=== PATIENT | male | born 1970 | race Caucasian/White ===

== ENCOUNTER 2019-02-03 15:11 | Emergency (ER) | payer BC, OTHER ==
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
[2019-02-03 15:39] VITALS: BP 118/68
--- NOTE | 2019-02-03 16:11 | UC ---
Bite Injury/Animal HPI - HPI Summary HPI Summary: 49-year-old male comes in with a chief complaint of a tick bite to the left side of the abdomen. He noticed that tick there today is not sure how long its been in there. He attempted to remove it and he broke up is off. No rash feels well otherwise. - History of Current Complaint Chief Complaint: UCGeneralIllness Stated Complaint: TICK Time Seen by Provider: 02/03/19 15:55 Pain Intensity: 0 - Allergies/Home Medications Allergies/Adverse Reactions: Allergies Allergy/AdvReac Type Severity Reaction Status Date / Time Adhesive Tape Allergy Mild Rash Verified 02/03/19 15:35 Home Medications: Home Medications Loratadine [Claritin 10 MG CAP] 10 mg PO DAILY 02/03/19 [History Confirmed 02/03] PMH/Surg Hx/FS Hx/Imm Hx Previously Healthy: Yes - Surgical History Surgical History: Yes Surgery Procedure, Year, and Place: gastroendofundiplication 1999,. vasectomy 1999,. T&A 1978,. kidney stone 1991. RT CTR 2005 (EVENT LOOP RECORDER PLACED AND THEN REMOVED) - Family History Known Family History: Positive: Non-Contributory - Social History Alcohol Use: Occasionally Substance Use Type: None Smoking Status (MU): Former Smoker Type: Cigarettes Amount Used/How Often: 1PPD Length of Time of Smoking/Using Tobacco: 15 YRS Have You Smoked in the Last Year: No When Did the Patient Quit Smoking/Using Tobacco: 5 YEARS AGO - Immunization History Most Recent Influenza Vaccination: never Most Recent Tetanus Shot: <5 yrs Most Recent Pneumonia Vaccination: never Review of Systems All Other Systems Reviewed And Are Negative: Yes Constitutional: Positive: Negative Skin: Positive: Other - SEE HPI Eyes: Positive: Negative ENT: Positive: Negative Respiratory: Positive: Negative Cardiovascular: Positive: Negative Gastrointestinal: Positive: Negative Motor: Positive: Negative Neurovascular: Positive: Negative Musculoskeletal: Positive: Negative Neurological: Positive: Negative Psychological: Positive: Negative Is Patient Immunocompromised?: No Physical Exam Triage Information Reviewed: Yes Appearance: Well-Appearing, No Pain Distress, Well-Nourished Vital Signs: Initial Vital Signs Temp 99.1 F 02/03/19 15:30 Pulse 60 02/03/19 15:30 Resp 16 02/03/19 15:30 BP 118/68 02/03/19 15:30 Pulse Ox 98 02/03/19 15:30 Vital Signs Reviewed: Yes Eye Exam: Normal Eyes: Positive: Conjunctiva Clear Neck: Positive: Supple Respiratory: Positive: No respiratory distress Musculoskeletal: Positive: Strength Intact, ROM Intact Neurological: Positive: Alert Psychological: Positive: Age Appropriate Behavior Skin: Positive: Other - On the left side of the abdomen there is a 3 mm area of erythema with a dark foreign body in the center which I removed using a pair of splinter forceps. Bite Injury Course/Dx - Course Course Of Treatment: No bull's-eye rash. No symptoms of Lyme disease. Treating the patient with doxycycline 200 mg by mouth single dose. Get reevaluated if worse or any questions or concerns. - Differential Dx/Diagnosis Provider Diagnosis: Tick bite of abdominal wall Discharge ED - Sign-Out/Discharge Documenting (check all that apply): Patient Departure All imaging exams completed and their final reports reviewed: No Studies - Discharge Plan Condition: Stable Disposition: HOME Prescriptions: DOXYcycline CAP(*) [DOXYcycline 100MG CAP(*)] 200 mg PO DAILY #2 cap Patient Education Materials: Tick Bite (ED) Referrals: Leah Martin MD [Primary Care Provider] - Additional Instructions: FOLLOW UP WITH YOUR DOCTOR IF NOT COMPLETELY IMPROVED. GET RECHECKED SOONER IF YOUR CONDITION WORSENS; BULLS EYE RASH, SYMPTOMS OF LYME DISEASE OR ANY QUESTIONS OR CONCERNS. - Billing Disposition and Condition Condition: STABLE Disposition: Home
== END 2019-02-03 16:18 | disposition home or self-care (01) ==
LOC: UCEAST 15:11
DX: S30.861A Insect bite (nonvenomous) of abdominal wall, initial encounter (principal); W57.XXXA Bitten or stung by nonvenomous insect and other nonvenomous arthropods, initial encounter; Y92.9 Unspecified place or not applicable; Z91.09 Other allergy status, other than to drugs and biological substances; Z87.891 Personal history of nicotine dependence
CPT/HCPCS: 99212; G0463